=== PATIENT | female | born 1985 | race Caucasian/White ===

== ENCOUNTER 2019-02-19 14:31 | Emergency (ER) | payer SELFPAY ==
--- NOTE | 2019-02-19 16:21 | RAD ---
PA AND LATERAL CHEST: Date: 02/19/19 HISTORY: Shortness of breath. Cough. Fever. FINDINGS: Heart size and mediastinum are within normal limits. Lungs are clear of any infiltrative process. IMPRESSION: No active intrathoracic disease. POS: OFF
== END 2019-02-19 16:42 | disposition home or self-care (01) ==
LOC: NAV ERS 14:31
DX: J30.2 Other seasonal allergic rhinitis (principal); F41.9 Anxiety disorder, unspecified; F32.9 Major depressive disorder, single episode, unspecified; F17.210 Nicotine dependence, cigarettes, uncomplicated; Z79.899 Other long term (current) drug therapy
CPT/HCPCS: 71046; 87804